=== PATIENT | female | born 1990 | race Caucasian/White ===

== ENCOUNTER 2017-08-04 16:27 | Emergency (ER) | payer OTHER ==
[~2017-08-04] VITALS: Ht 165.1 cm; Wt 71.0 kg
[~2017-08-04 16:27] MED LIST: PREN-39 PO
[2017-08-04 16:33] VITALS: Ht 165.1 cm; Wt 71.0 kg
[2017-08-04] MEDS ORDERED: METOCLOPRAMIDE 10 MG INJ IV STA (17:50)
[2017-08-04] MEDS ORDERED: DIPHENHYDRAMINE 50 MG INJ IV STA (17:50)
[2017-08-04] MEDS ORDERED: METO10TA92 PO (18:13)
[2017-08-04] MEDS ORDERED: ACET325T33 PO (18:13)
[2017-08-04] MEDS ORDERED: SOD CHLORIDE 0.9% 1,000 ML IV STA (18:22)
[2017-08-04 19:15] LABS: ADD UMIC YES; UR ASCORBIC ACID NEGATIVE (NEGATIVE); UR BACTERIA FEW /HPF (NONE SEEN); UR BILIRUBIN (Dip) NEGATIVE (NEGATIVE); UR BLOOD (Dip) NEGATIVE (NEGATIVE); UR CLARITY SLIGHTLY CLOUDY (CLEAR); UR COLOR YELLOW (YELLOW); UR GLUCOSE (Dip) NEGATIVE (NEGATIVE); UR KETONES (Dip) NEGATIVE (NEGATIVE); UR LEUKOCYTE ESTERASE (Dip) TRACE Leu/ul (NEGATIVE); UR MUCUS FEW /HPF (NONE SEEN); UR NITRITE (Dip) NEGATIVE (NEGATIVE); UR RBC 2 /HPF (0-5); UR SPECIFIC GRAVITY (Dip) 1.013 (1.003-1.030); UR SQUAMOUS EPITHELIAL CELL FEW /HPF (FEW); UR TOTAL PROTEIN (Dip) NEGATIVE (NEGATIVE); UR UROBILINOGEN (Dip) NEGATIVE (NEGATIVE)
[2017-08-04] MEDS ORDERED: ACETAMINOPHEN 500 MG TAB PO STA (19:17)
[2017-08-04 20:34] VITALS: BP 114/55; PULSE 92; RESP 17; TEMP 98.7
--- NOTE | 2017-08-04 20:41 | ERD ---
ER Documentation Chief Complaint Date/Time DATE: 08/04/17 TIME: 20:33 Chief Complaint intermittent head pain x 15 weeks 15 weeks HPI 26 year old female presents to the ED with intermittent 8/10 occipital region radiating to the frontal headache for past 15 weeks, patient denies nausea, vomiting, visual disturbances or neuro deficits. Patient states she took tylenol at 1pm without any relief. Denies abdominal pain, vaginal bleeding. ROS All systems reviewed and are negative except as per history of present illness. Medications Home Meds Active Scripts Metoclopramide* (Reglan*) 10 Mg Tablet, 10 MG PO Q6 Y for NAUSEA AND/OR VOMITING , #15 TAB Prov:JESSENIA SALINAS PA-C 08/04/17 Acetaminophen* (Tylenol*) 325 Mg Tablet, 2 TAB PO Q4 Y for PAIN AND OR ELEVATED TEMP, #30 TAB Prov:JESSENIA SALINAS PA-C 08/04/17 Reported Medications Vits W-Ca,Fe,Fa(<1MG) ( Vitamins) 1 Tab Tablet, 1 TAB PO 04/05/14 Allergies Allergies: Coded Allergies: No Known Allergies (Verified Allergy, Unknown, 04/05/14) PMhx/Soc Medical and Surgical Hx: pt denies Medical Hx, pt denies Surgical Hx Hx Alcohol Use: No Hx Substance Use: No Hx Tobacco Use: No Physical Exam Vitals Vital Signs Date Time Temp Pulse Resp B/P Pulse Ox O2 Delivery O2 Flow Rate FiO2 08/04/17 20:34 98.7 92 17 114/55 99 Room Air 08/04/17 18:52 86 17 110/80 98 Room Air 08/04/17 18:23 114 08/04/17 18:20 128 17 112/98 100 Room Air 08/04/17 16:33 99.1 90 18 127/79 Physical Exam GENERAL: well-developed/well-nourished, in no apparent distress, non-toxic appearing HENT: NC/AT, bilateral tympanic membrane is normal with good cone of light, nares patent, oropharynx clear without exudates EYES: Conjunctiva normal, PERRLA, EOMI, no nystagmus noted NECK: Supple, no lymphadenopathy PULM: CTA bilaterally, no rales, rhonchi, or wheezing heard CV: Normal S1S2, RRR, good capillary refill GI: Soft, non-distended, normal bowel sounds, non-tender BACK: No midline tenderness, no masses, No CVAT EXT: No clubbing, cyanosis, or edema NEURO: Alert and orientated to person, place, and time. CN II-IIX intact. Gait and coordination were normal. 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 SKIN: Intact, normal turgor PSYCH: Normal mood and mentation, patient denied SI Results 24 hrs Laboratory Tests Test 08/04/17 17:58 Urine Color YELLOW Urine Clarity SLIGHTLY CLOUDY Urine pH 5.0 Urine Specific [place] 1.013 Urine Ketones NEGATIVEmg/dL Urine Nitrite NEGATIVEmg/dL Urine Bilirubin NEGATIVEmg/dL Urine Urobilinogen NEGATIVEmg/dL Urine Leukocyte Esterase TRACELeu/ul Urine Microscopic RBC 2/HPF Urine Microscopic WBC 2/HPF Urine Squamous Epithelial Cells FEW/HPF Urine Bacteria FEW/HPF Urine Mucus FEW/HPF Urine Hemoglobin NEGATIVEmg/dL Urine Glucose NEGATIVEmg/dL Urine Total Protein NEGATIVEmg/dl Current Medications Medications (Trade) Dose Ordered Sig/Samantha Route PRN Reason Start Time Stop Time Status Last Admin Dose Admin Diphenhydramine HCl (Benadryl) 50 mg ONCE STAT IV 08/04/17 17:50 08/04/17 17:52 DC 08/04/17 18:07 Metoclopramide HCl 10 mg 10 mg ONCE STAT IV 08/04/17 17:50 08/04/17 17:52 DC 08/04/17 18:07 Sodium Chloride (NS) 1,000 ml @ 1,000 mls/hr Q1H STAT IV 08/04/17 18:22 08/04/17 19:21 DC 08/04/17 18:39 Acetaminophen (Tylenol Tab) 1,000 mg ONCE STAT PO 08/04/17 19:17 08/04/17 19:18 DC 08/04/17 19:36 Procedures/MDM This is a 26-year-old female presenting to the emergency department complaining of intermittent headaches for the past 15 weeks. Neurology exam was normal and I don't recommend a CT scan at this time. IV axis sounds, patient was given 1 L of fluids. She was given Tylenol, IV Benadryl and Reglan, and recessed her she states that she feels some improvement. hemodynamically stable and neurovascularly intact. Prescriptions a, and Reglan and were given. Discussed to follow up with a primary care physician in the next couple days. Return to the ER if condition worsens or not improving as expected. Patient agreed and understood this plan. Departure Diagnosis: Primary Impression: Headache Condition: Stable Patient Instructions: Self-Care for Headaches Referrals: DOCTOR,NOT ON STAFF (PCP) Additional Instructions: FOLLOW UP WITH YOUR PRIMARY CARE PHYSICIAN TOMORROW.Return to this facility if you are not improving as expected. JESSENIA SALINAS PA-C Aug 04, 2017 20:41
== END 2017-08-04 20:34 | disposition home or self-care (01) ==
LOC: FTE 16:27
DX: O99.89 Other specified diseases and conditions complicating pregnancy, childbirth and the puerperium (principal); R51 Headache; Z3A.15 15 weeks gestation of pregnancy
CPT/HCPCS: 81001; 96361; 96374; 96375; J1200; J2765; J7030; Z7502; Z7610

== ENCOUNTER 2017-10-05 21:38 | Outpatient (CLI) | payer OTHER ==
[~2017-10-05] VITALS: Ht 165.1 cm; Wt 73.7 kg
[~2017-10-05 21:38] MED LIST changes: +ACET325T33 PO; +METO10TA92 PO
[2017-10-05 21:46] VITALS: BP 131/60; PULSE 106; RESP 16; Ht 165.1 cm; Wt 73.7 kg
--- NOTE | 2017-10-05 22:56 | RADRPT ---
PROCEDURE: Obstetrical ultrasound greater than 14 weeks CLINICAL INDICATION: labor. Evaluate cervical length TECHNIQUE: Real time sonographic imaging of the gravid uterus is performed transabdominally and mu ltiple static herzog scale and Doppler images are submitted for review as are measurements. The image s are reviewed on the PACS. COMPARISON: 09/13/2017 FINDINGS: The cervical os is closed with a normal cervical length of 4.4 cm, previously 4.8 cm on the study of 09/13/2017. There is a single living intrauterine gestation in breech presentation. The heart beat is est imated at 163 bpm. Placenta is anterior and grade 1. There is no evidence of placenta previa or abruption. RPTAT:HJJR IMPRESSION: 1. Single viable intrauterine gestation in breech presentation, the cervical length estimated at 4.4 cm, previously 4.8 cm on the study of 09/13/2017. 2. Anterior grade 1 placenta without placenta previa. Physician Norm Date Time Electronically viewed and signed by Physician Norm on 10/05/2017 22:55 /
[2017-10-05 22:59] LABS: ADD UMIC NO; UR ASCORBIC ACID NEGATIVE (NEGATIVE); UR BACTERIA FEW /HPF (NONE SEEN); UR BILIRUBIN (Dip) NEGATIVE (NEGATIVE); UR BLOOD (Dip) NEGATIVE (NEGATIVE); UR CLARITY SLIGHTLY CLOUDY (CLEAR); UR COLOR YELLOW (YELLOW); UR GLUCOSE (Dip) NEGATIVE (NEGATIVE); UR KETONES (Dip) NEGATIVE (NEGATIVE); UR LEUKOCYTE ESTERASE (Dip) NEGATIVE Leu/ul (NEGATIVE); UR NITRITE (Dip) NEGATIVE (NEGATIVE); UR RBC 0 /HPF (0-5); UR SPECIFIC GRAVITY (Dip) 1.006 (1.003-1.030); UR SQUAMOUS EPITHELIAL CELL FEW /HPF (FEW); UR TOTAL PROTEIN (Dip) NEGATIVE (NEGATIVE); UR UROBILINOGEN (Dip) NEGATIVE (NEGATIVE)
[2017-10-05 23:40] LABS: BASOPHILS % 0.2 % (0.0-2.0); EOSINOPHILS # 0.1 10^3/ul (0.0-0.5); EOSINOPHILS % 0.7 % (0.0-7.0); HEMATOCRIT 32.2 % (37.0-47.0); LYMPHOCYTES # 1.3 10^3/ul (0.8-2.9); LYMPHOCYTES % 13.4 % (15.0-51.0); MEAN CORPUSCULAR HEMOGLOBIN 29.6 pg (29.0-33.0); MEAN CORPUSCULAR HGB CONC 34.2 g/dl (32.0-37.0); MEAN CORPUSCULAR VOLUME 86.6 fl (82.0-101.0); MEAN PLATELET VOLUME 9.6 fl (7.4-10.4); MONOCYTE # 0.7 10^3/ul (0.3-0.9); MONOCYTES % 6.5 % (0.0-11.0); NEUTROPHIL # 7.8 10^3/ul (1.6-7.5); NEUTROPHILS % 78.1 % (39.0-77.0); PLATELET COUNT 257 10^3/UL (140-415); RED BLOOD COUNT 3.72 10^6/ul (4.20-5.40); RED CELL DISTRIBUTION WIDTH 13.2 % (11.5-14.5); WHITE BLOOD COUNT 9.9 10^3/ul (4.8-10.8)
[2017-10-06] MEDS ORDERED: TERBUTALINE 1 MG/ML INJ SC ONE
--- NOTE | 2017-10-06 01:52 | PN ---
Triage Information Date/Time September Reason for visit: Weeks of Gestation 25 weeks and 5 days /Para 3 para 2 Diabetes: none Hypertention: none Additional information 27-year-old with IUP at 25 weeks and 5 days with complaint of upper abdominal pain. Denies any leaking of fluid, vaginal bleeding or decreased movement. She reports pain starts in the upper part of the uterus with radiation to the left lower abdomen. Denies any nausea vomiting, fevers chills, Objective Vital Signs Date Time Temp Pulse Resp B/P Pulse Ox O2 Delivery O2 Flow Rate FiO2 10/05/17 21:46 98.6 106 16 131/60 Room Air Heart Rate: 130's Contractions: < 5 Minutes Apart Exam General appearance: Alert and oriented 4. Patient does not appear to be in any acute distress Abdomen: Soft, gravid, fundal height consistent with gestational age, no tenderness, no tenderness, no guarding no rigidity NST: Category 1 and appropriate for gestational age Occasional contraction on the monitor, decrease after p.o. hydration and a dose of terbutaline Hematology - 72 Hrs Test 10/05/17 23:29 White Blood Count 9.910^3/ul (4.8-10.8) Red Blood Count 3.7210^6/ul (4.20-5.40) L Hemoglobin 11.0g/dl (12.0-16.0) L Hematocrit 32.2% (37.0-47.0) L Mean Corpuscular Volume 86.6fl (82.0-101.0) Mean Corpuscular Hemoglobin 29.6pg (29.0-33.0) Mean Corpuscular Hemoglobin Concent 34.2g/dl (32.0-37.0) Red Cell Distribution Width 13.2% (11.5-14.5) Platelet Count 24078^3/UL (140-415) Mean Platelet Volume 9.6fl (7.4-10.4) Neutrophils % 78.1% (39.0-77.0) H Lymphocytes % 13.4% (15.0-51.0) L Monocytes % 6.5% (0.0-11.0) Eosinophils % 0.7% (0.0-7.0) Basophils % 0.2% (0.0-2.0) Nucleated Red Blood Cells % 0.0/100WBC (0.0-0.0) Neutrophils # 7.810^3/ul (1.6-7.5) H Lymphocytes # 1.310^3/ul (0.8-2.9) Monocytes # 0.710^3/ul (0.3-0.9) Eosinophils # 0.110^3/ul (0.0-0.5) Basophils # 0.010^3/ul (0.0-0.1) Nucleated Red Blood Cells # 0.010^3/ul (0.0-0.0) Results/Medications Result Diagram: 10/05/17 2329 Results 24 hrs Laboratory Tests Test 10/05/17 22:40 10/05/17 23:29 Urine Color YELLOW Urine Clarity SLIGHTLY CLOUDY A Urine pH 6.0 Urine Specific [place] 1.006 Urine Ketones NEGATIVE Urine Nitrite NEGATIVE Urine Bilirubin NEGATIVE Urine Urobilinogen NEGATIVE Urine Leukocyte Esterase NEGATIVE Urine Microscopic RBC 0 Urine Microscopic WBC 2 Urine Squamous Epithelial Cells FEW Urine Bacteria FEW A Urine Hemoglobin NEGATIVE Urine Glucose NEGATIVE Urine Total Protein NEGATIVE Fibronectin NEGATIVE White Blood Count 9.9 Red Blood Count 3.72 L Hemoglobin 11.0 L Hematocrit 32.2 L Mean Corpuscular Volume 86.6 Mean Corpuscular Hemoglobin 29.6 Mean Corpuscular Hemoglobin Concent 34.2 Red Cell Distribution Width 13.2 Platelet Count 257 Mean Platelet Volume 9.6 Neutrophils % 78.1 H Lymphocytes % 13.4 L Monocytes % 6.5 Eosinophils % 0.7 Basophils % 0.2 Nucleated Red Blood Cells % 0.0 Neutrophils # 7.8 H Lymphocytes # 1.3 Monocytes # 0.7 Eosinophils # 0.1 Basophils # 0.0 Nucleated Red Blood Cells # 0.0 Imaging Results PROCEDURE: Obstetrical ultrasound greater than 14 weeks CLINICAL INDICATION: labor. Evaluate cervical length TECHNIQUE: Real time sonographic imaging of the gravid uterus is performed transabdominally and multiple static herzog scale and Doppler images are submitted for review as are measurements. The images are reviewed on the PACS. COMPARISON: 09/13/2017 FINDINGS: The cervical os is closed with a normal cervical length of 4.4 cm, previously 4.8 cm on the study of 09/13/2017. There is a single living intrauterine gestation in breech presentation. The heart beat is estimated at 163 bpm. Placenta is anterior and grade 1. There is no evidence of placenta previa or abruption. RPTAT:HJJR IMPRESSION: 1. Single viable intrauterine gestation in breech presentation, the cervical length estimated at 4.4 cm, previously 4.8 cm on the study of 09/13/2017. 2. Anterior grade 1 placenta without placenta previa. Disposition: Discharge Assessment/Plan IUP at 25 weeks and 5 days contraction. No evidence of labor. False labor pain Resolved with p.o. hydration and dose of terbutaline Cervical length: 4.4 cm. fibronectin negative Patient will be discharged home Follow up with primary OB office in 24-48 hours or sooner as needed Strict labor precaution and platelet count and follow-up as above discussed with the patient. Patient verbalized understanding. All questions are answered. KEEGAN MARCOS MD Oct 06, 2017 01:52
--- NOTE | 2017-10-06 02:00 | TRIAGE ---
OB Triage Datetime Report Generated by CPN: 10/06/2017 02:00 Datetime: 10/06/2017 01:42 Contraction Comments: TOCO REMOVED Comments: US REMOVED Datetime: 10/06/2017 01:40 Stage of : OB Triage Labor Evaluation Frequency: X2 Monitor Mode: External Duration (sec)2399: 50-70 Quality: Mild Resting Tone [place]: Relaxed Heart Rate FHR Baseline Rate: 150 Monitor Mode: External US Variability: Moderate 6-25 bpm Accelerations: 15X15 Decelerations: None Comments: LOC; MATERNAL HR Datetime: 10/06/2017 01:04 Pain Assessment Pain Scale: 5 Pain Presence: Intermittent Pain Type: Contraction Pain Location: Abdomen Pain Goal: 3 Pain Assessment Comments: PT STATES PAIN STILL 5/10 BUT LESS FREQUENT THAN BEFORE Datetime: 10/06/2017 00:40 Stage of : OB Triage Labor Evaluation Frequency: IRREG Monitor Mode: External Pattern: Normal: <= 5 Contractions in 10 Minutes Resting Tone [place]: Relaxed Heart Rate FHR Baseline Rate: 145 Monitor Mode: External US Variability: Moderate 6-25 bpm Accelerations: 15X15 Decelerations: None Category: Category I Datetime: 10/05/2017 23:40 Stage of : OB Triage Labor Evaluation Frequency: 4-6 Monitor Mode: External Duration (sec)2399: 50-80 Quality: Mild Resting Tone [place]: Relaxed Heart Rate FHR Baseline Rate: 145 Monitor Mode: External US Variability: Moderate 6-25 bpm Accelerations: None Decelerations: None Pain Assessment Pain Scale: 5 Pain Presence: Intermittent Pain Type: Contraction Pain Location: Abdomen Pain Goal: 3 Datetime: 10/05/2017 23:20 Stage of : OB Triage Datetime: 10/05/2017 22:40 Stage of : OB Triage Labor Evaluation Frequency: X6 Monitor Mode: External Quality: Mild Contraction Comments: PER PT Heart Rate FHR Baseline Rate: 155 Monitor Mode: External US Variability: Moderate 6-25 bpm Accelerations: None Decelerations: None Pain Assessment Pain Scale: 5 Pain Presence: Intermittent Pain Type: Contraction Pain Location: Abdomen Pain Goal: 3 Datetime: 10/05/2017 22:21 Stage of : OB Triage Datetime: 10/05/2017 22:20 Stage of : OB Triage Datetime: 10/05/2017 21:44 Stage of : OB Triage Assessment Type: Triage EGA: 25.4 Maternal Assessment Level of Consciousness: Fully Conscious DTR's/Clonus: DTRs 2+; No Clonus Headache: Denies Blurred Vision: No Respiratory Effort: Unlabored; Regular Rhythm; Equal Expansion Breath Sounds, Left: Clear and Equal Breath Sounds, Right: Clear and Equal Nausea/Vomiting: Denies RUQ Epigastric Pain: Denies Lower Extremities Edema: None Degree: None Upper Extremities Edema: None Degree: None Facial Edema: None Temperature Route: Oral Fall Risk Assessment History of Falling: (0) No Secondary Diagnosis: (0) No Ambulatory Aid: (0) Bedrest/Nurse Assist IV Therapy: (0) No Gait: (0) Normal/Bedrest/Immobile Mental Status: (0) Oriented to Own Ability Fall Score: 0 Fall Risk Score Definition: No Risk: No action required Pain Assessment Pain Scale: 5 Pain Presence: Intermittent Pain Type: Contraction Pain Location: Abdomen Pain Goal: 3 Vaginal Exam Membrane Status: Intact Datetime: 10/05/2017 21:43 Time of Arrival: 10/05/2017 21:28 Arrived By: Wheelchair Arrived From: Emergency Dept Chief Complaint: PT PRESENTS TO TRIAGE W/ C/O UPPER ABDOMINAL PAIN 5/10 WITH STOMACH HARDENING SIN CE 1500 Q 10 MIN Movement: Present Contractions: Irregular Time Contractions Began: 10/05/2017 15:00 Contractions: Q 10 MIN Rupture of Membranes: Denies Vaginal Bleeding: None Vaginal Discharge: Denies Recent Sexual Intercouse: Denies Abdominal Trauma: Not Applicable Patient Complaints: Contractions; Epigastric Pain Time Provider Notified: 10/06/2017 22:20 Provider Notified: PRITI Initial Plan: EFM; CVL; FFN; PO HYDRATE; CBC Datetime: 10/05/2017 21:40 Contraction Comments: TOCO APPLIED Comments: US APPLIED
== END 2017-10-06 01:50 | disposition home or self-care (01) ==
LOC: OBT 21:38 → L-D 21:40 → OBT 10-06 01:50
PROVIDERS: ATTEND Obstetrics & Gynecology
DX: O26.892 Other specified pregnancy related conditions, second trimester (principal); Z3A.25 25 weeks gestation of pregnancy; R10.9 Unspecified abdominal pain
CPT/HCPCS: 76817; 81001; 82731; 85025; J3105; Z7500; 81003; G0463

== ENCOUNTER 2017-10-20 17:29 | Outpatient (CLI) | payer OTHER ==
[~2017-10-20] VITALS: Ht 165.1 cm; Wt 73.8 kg
[~2017-10-20 17:29] MED LIST changes: -ACET325T33 PO; -METO10TA92 PO
[2017-10-20 17:41] VITALS: BP 135/64; PULSE 100; RESP 17; Ht 165.1 cm; Wt 73.8 kg
[2017-10-20] MEDS ORDERED: FERR1TAB13 PO (17:54)
[2017-10-20] MEDS ORDERED: CALC-143 PO (17:55)
[2017-10-20 18:26] LABS: ADD UMIC YES; UR ASCORBIC ACID NEGATIVE (NEGATIVE); UR BILIRUBIN (Dip) NEGATIVE (NEGATIVE); UR BLOOD (Dip) 1+ mg/dL (NEGATIVE); UR CLARITY CLEAR (CLEAR); UR COLOR COLORLESS (YELLOW); UR GLUCOSE (Dip) NEGATIVE (NEGATIVE); UR KETONES (Dip) NEGATIVE (NEGATIVE); UR LEUKOCYTE ESTERASE (Dip) NEGATIVE Leu/ul (NEGATIVE); UR NITRITE (Dip) NEGATIVE (NEGATIVE); UR RBC 0 /HPF (0-5); UR SPECIFIC GRAVITY (Dip) 1.001 (1.003-1.030); UR SQUAMOUS EPITHELIAL CELL FEW /HPF (FEW); UR TOTAL PROTEIN (Dip) NEGATIVE (NEGATIVE); UR UROBILINOGEN (Dip) NEGATIVE (NEGATIVE)
[2017-10-20] MEDS ORDERED: TERBUTALINE 1 MG/ML INJ SC ONE (18:30)
[2017-10-20] MEDS ORDERED: LACTATED RINGER'S 1,000 ML IV ONE (18:30)
[2017-10-20] MEDS ORDERED: TERBUTALINE 1 ML ONE (18:35)
--- NOTE | 2017-10-20 19:33 | RADRPT ---
PROCEDURE: Obstetrical ultrasound greater than 14 weeks CLINICAL INDICATION: Contractions TECHNIQUE: Real time sonographic imaging of the gravid uterus is performed transabdominally and mu ltiple static herzog scale and Doppler images are submitted for review as are measurements. The image s are reviewed on the PACS. COMPARISON: 10/05/2017 FINDINGS: The cervical os is closed with a normal cervical length of 5.2 cm. There is a single living intrauterine gestation in cephalic to variable presentation. The hea rt beat is estimated at 166 bpm. Placenta is left lateral and grade1-2. There is no evidence of placenta previa or abruption. RPTAT:HJJR IMPRESSION: 1. Single viable intrauterine gestation with the cervix length estimated at 5.2 cm, previously 4.4 c m on the study of 10/05/2017. Physician Norm Date Time Electronically viewed and signed by Physician Norm on 10/20/2017 19:33 JR/
[2017-10-20 20:08] LABS: BASOPHILS % 0.3 % (0.0-2.0); EOSINOPHILS # 0.1 10^3/ul (0.0-0.5); EOSINOPHILS % 1.5 % (0.0-7.0); HEMATOCRIT 33.2 % (37.0-47.0); HEMOGLOBIN 11.3 g/dl (12.0-16.0); LYMPHOCYTES # 2.2 10^3/ul (0.8-2.9); MEAN CORPUSCULAR HEMOGLOBIN 29.4 pg (29.0-33.0); MEAN CORPUSCULAR VOLUME 86.2 fl (82.0-101.0); MEAN PLATELET VOLUME 10.5 fl (7.4-10.4); MONOCYTE # 0.7 10^3/ul (0.3-0.9); MONOCYTES % 7.7 % (0.0-11.0); NEUTROPHIL # 5.9 10^3/ul (1.6-7.5); PLATELET COUNT 303 10^3/UL (140-415); RED BLOOD COUNT 3.85 10^6/ul (4.20-5.40); RED CELL DISTRIBUTION WIDTH 13.5 % (11.5-14.5); WHITE BLOOD COUNT 9.2 10^3/ul (4.8-10.8)
--- NOTE | 2017-10-20 21:29 | PN ---
Triage Information Date/Time 10/20/17 Reason for visit: Uterine contractions Weeks of Gestation 27w5w /Para Diabetes: none Hypertention: none Objective Vital Signs Date Time Temp Pulse Resp B/P Pulse Ox O2 Delivery O2 Flow Rate FiO2 10/20/17 17:41 100 17 135/64 Room Air Heart Rate: 140's Heart Rate Comments FHR 166 after terb Contractions: >10 Minutes Apart Results/Medications Result Diagram: 10/20/17 1840 Results 24 hrs Laboratory Tests Test 10/20/17 17:50 10/20/17 18:40 Urine Color COLORLESS Urine Clarity CLEAR Urine pH 6.0 Urine Specific [place] 1.001 L Urine Ketones NEGATIVE Urine Nitrite NEGATIVE Urine Bilirubin NEGATIVE Urine Urobilinogen NEGATIVE Urine Leukocyte Esterase NEGATIVE Urine Microscopic RBC 0 Urine Microscopic WBC 1 Urine Squamous Epithelial Cells FEW Urine Hemoglobin 1+ H Urine Glucose NEGATIVE Urine Total Protein NEGATIVE White Blood Count 9.2 Red Blood Count 3.85 L Hemoglobin 11.3 L Hematocrit 33.2 L Mean Corpuscular Volume 86.2 Mean Corpuscular Hemoglobin 29.4 Mean Corpuscular Hemoglobin Concent 34.0 Red Cell Distribution Width 13.5 Platelet Count 303 Mean Platelet Volume 10.5 H Neutrophils % 64.0 Lymphocytes % 24.0 Monocytes % 7.7 Eosinophils % 1.5 Basophils % 0.3 Nucleated Red Blood Cells % 0.0 Neutrophils # 5.9 Lymphocytes # 2.2 Monocytes # 0.7 Eosinophils # 0.1 Basophils # 0.0 Nucleated Red Blood Cells # 0.0 Medications IV hydration and terb x1 Imaging Results CVL5.2 Disposition: Discharge Assessment/Plan IUP 27w5d R/O PTL resolved with IV hydration with x1 of subq terbutaline PLAN discharge home with instructions of increase water intake bed rest for one wk RTH imediately if sx recur otherwise f/u at her OB clinic MAR EMERY MD Oct 20, 2017 21:29
--- NOTE | 2017-10-21 02:12 | TRIAGE ---
OB Triage Datetime Report Generated by CPN: 10/21/2017 02:12 Datetime: 10/20/2017 21:20 Stage of : OB Triage Datetime: 10/20/2017 21:05 Stage of : OB Triage Labor Evaluation Frequency: x1 Monitor Mode: External Duration (sec)2399: 50 Quality: Mild Pattern: Normal: <= 5 Contractions in 10 Minutes Resting Tone [place]: Relaxed Heart Rate FHR Baseline Rate: 145 Monitor Mode: External US Variability: Moderate 6-25 bpm Accelerations: 15X15 Decelerations: None Datetime: 10/20/2017 20:21 Stage of : OB Triage Datetime: 10/20/2017 20:15 Stage of : OB Triage Datetime: 10/20/2017 20:00 Stage of : OB Triage Labor Evaluation Frequency: x2 Monitor Mode: External Duration (sec)2399: 40-80 Quality: Mild Pattern: Normal: <= 5 Contractions in 10 Minutes Resting Tone [place]: Relaxed Heart Rate FHR Baseline Rate: 150 Monitor Mode: External US Variability: Moderate 6-25 bpm Accelerations: 15X15 Decelerations: None Comments: Difficulty continuously monitoring due to excessive movt. Datetime: 10/20/2017 19:34 Stage of : OB Triage Assessment Type: Triage Maternal Assessment Level of Consciousness: Fully Conscious DTR's/Clonus: DTRs 2+; No Clonus Headache: Denies Blurred Vision: No Respiratory Effort: Unlabored; Regular Rhythm; Equal Expansion Breath Sounds, Left: Clear and Equal Breath Sounds, Right: Clear and Equal Nausea/Vomiting: Denies RUQ Epigastric Pain: Denies Facial Edema: None Fall Risk Assessment History of Falling: (0) No Secondary Diagnosis: (0) No Ambulatory Aid: (0) Bedrest/Nurse Assist IV Therapy: (0) No Gait: (0) Normal/Bedrest/Immobile Mental Status: (0) Oriented to Own Ability Datetime: 10/20/2017 18:54 Labor Evaluation Frequency: IRREG Monitor Mode: External Duration (sec)2399: 30-70 Pattern: Normal: <= 5 Contractions in 10 Minutes Resting Tone [place]: Relaxed Heart Rate FHR Baseline Rate: 150 Monitor Mode: External US Variability: Moderate 6-25 bpm Accelerations: 10X10 Decelerations: Variable Category: Category II Datetime: 10/20/2017 17:51 Assessment Type: Admission Assessment Maternal Assessment Level of Consciousness: Fully Conscious DTR's/Clonus: DTRs 2+; No Clonus Headache: Denies Blurred Vision: No Respiratory Effort: Unlabored; Regular Rhythm; Equal Expansion Breath Sounds, Left: Clear and Equal Breath Sounds, Right: Clear and Equal Nausea/Vomiting: Denies RUQ Epigastric Pain: Denies Facial Edema: None Fall Risk Assessment History of Falling: (0) No Secondary Diagnosis: (0) No Ambulatory Aid: (0) Bedrest/Nurse Assist IV Therapy: (0) No Gait: (0) Normal/Bedrest/Immobile Mental Status: (0) Oriented to Own Ability Fall Score: 0 Fall Risk Score Definition: No Risk: No action required Datetime: 10/20/2017 17:50 Time of Arrival: 10/20/2017 17:25 EGA: 27.5 Arrived By: Ambulatory Arrived From: Home Movement: Present Contractions: Occasional Time Contractions Began: 10/20/2017 07:00 Rupture of Membranes: Denies Vaginal Bleeding: None Vaginal Discharge: Denies Recent Sexual Intercouse: Yes Abdominal Trauma: Not Applicable Patient Complaints: Contractions Time Provider Notified: 10/20/2017 18:20 Provider Notified: JAZLYN Initial Plan: TOCO/ US, CERVICAL LENGHT, UA, CBC, IV HYDRATION WITH LR, AND TERB SUBCUTANEOUS X 1. Datetime: 10/20/2017 17:36 Pain Assessment Pain Scale: 3 Pain Presence: Intermittent Pain Type: Contraction Pain Location: Abdomen Pain Relief Measures: Comfort Measures Datetime: 10/05/2017 21:44 EGA: 25.4 Fall Score: 0 Fall Risk Score Definition: No Risk: No action required
== END 2017-10-20 21:38 | disposition home or self-care (01) ==
LOC: OBT 17:29 → L-D 17:31 → OBT 21:38
PROVIDERS: ATTEND Obstetrics & Gynecology
DX: O62.9 Abnormality of forces of labor, unspecified (principal); Z3A.27 27 weeks gestation of pregnancy
CPT/HCPCS: 36415; 76817; 81001; 85025; 96360; 96361; 96372; J3105; J7120; Z7500; G0463

== ENCOUNTER 2017-11-12 03:59 | Emergency (ER) | END 2017-11-12 05:23 | disposition home or self-care (01) ==

== ENCOUNTER 2018-01-13 20:12 | Inpatient (IN) | END 2018-01-17 14:41 | disposition home or self-care (01) | DRG 775 ==